=== PATIENT | female | born 1980 | race Caucasian/White ===

== ENCOUNTER 2024-03-11 17:25 | Emergency (ER) | payer MEDICAID ==
[~2024-03-11] VITALS: Ht 167.6 cm; Wt 94.5 kg
[2024-03-11 17:35] VITALS: BP 144/84; PULSE 76; RESP 20; TEMP 98.8; O2SAT 99
[2024-03-11] MEDS ORDERED: AMLO2.5T2 PO (17:39)
== END 2024-03-11 17:54 | disposition home or self-care (01) ==
LOC: ER 17:26
DX: I10 Essential (primary) hypertension (principal); Z79.899 Other long term (current) drug therapy
CPT/HCPCS: 99281